=== PATIENT | female | born 1960 | race Caucasian/White ===

== ENCOUNTER 2023-07-09 13:26 | Outpatient (REF) | payer OTHER, SELFPAY ==
[2023-07-09 15:09] LABS: Thyroid Stimulating Hormone 2.75 uIU/mL (0.32-4.0)
[2023-07-10 09:13] LABS: T4 Thyroxine 7.6 ug/dL (4.5-12.0)
[2023-07-11 02:53] LABS: T3 Uptake 28 % (22-35)
== END 2023-07-09 13:27 | disposition home or self-care (01) ==
LOC: HO.LAB 13:26
PROVIDERS: PCP Internal Medicine; Visit Provider Psychiatry & Neurology Neurology
DX: E05.90 Thyrotoxicosis, unspecified without thyrotoxic crisis or storm (principal)
CPT/HCPCS: 36415; 84436; 84443; 84479